=== PATIENT | female | born 1995 | race Two or more races ===

== ENCOUNTER → 2017-02-26 | Outpatient (CLI) | payer MEDICAID | LOC: FIMAGING 12:24 | DX: M25.551 Pain in right hip (principal); M25.561 Pain in right knee; R93.8 Abnormal findings on diagnostic imaging of other specified body structures ==

== ENCOUNTER 2017-03-27 06:40 | Emergency (ER) | payer MEDICAID ==
[2017-03-27 06:45] VITALS: BP 124/75; PULSE 78; TEMP 97.9; O2SAT 97
[2017-03-27] MEDS ORDERED: IBUPROFEN 600 MG TAB PO ONE (07:02)
--- NOTE | 2017-03-27 07:18 | EDPHY ---
H & P Time Seen by Provider: 03/27/17 07:07 HPI/ROS: CHIEF COMPLAINT: Right thumb pain HISTORY OF PRESENT ILLNESS: Patient is a 22-year-old [employer] who presents emergency department with right thumb pain. Her pain started last week at some point. 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 She describes fairly diffuse pain at the base of her thumb. Pain is moderate. Worse with movement. No numbness or tingling. REVIEW OF SYSTEMS: Negative Past Medical/Surgical History: Noncontributory Smoking Status: Former smoker Physical Exam: General Appearance: Alert and no distress. Head: Pupils equal. Normal. Respiratory: No respiratory distress. Cardiac: regular rate and rhythm. Extremities: patient's right hand and thumb appear normal. There is no swelling or discoloration. She has mild tenderness to palpation at the base of her right thumb. No crepitus or palpable deformity. Skin: No rashes or lesions. Neuro: Alert. Normal mood and affect. Constitutional: Initial Vital Signs Temperature (C) 36.6 C 03/27/17 06:41 Heart Rate 78 03/27/17 06:41 Respiratory Rate 18 03/27/17 06:41 Blood Pressure 124/75 H 03/27/17 06:41 O2 Sat (%) 97 03/27/17 06:41 O2 Delivery Mode Room Air Allergies/Adverse Reactions: No Known Allergies Allergy (Verified 05/07/16 04:34) Home Medications: Medication Instructions Recorded Albuterol Inhaler Hfa 12/16/13 Medical Decision Making ED Course/Re-evaluation: In the emergency department I discussed possible etiologies with the patient. I answered all her questions. X-ray of her right thumb was ordered. Right thumb x-ray: Please refer the dictated report. No acute disease noted. I discussed the results with the patient and answered all her questions. The patient was placed in a Velcro thumb spica splint. Post splint placement she was neurovascular intact distally. She will follow up with Orthopedics. She is given warnings prior to leaving. Differential Diagnosis: My differential includes but is not limited to fracture, dislocation, sprain, strain - Data Points Medications Given: Discontinued Medications Ibuprofen (Motrin) 600 mg PO EDNOW ONE Stop: 03/27/17 07:03 Last Admin: 03/27/17 07:10 Dose: 600 mg Departure - Departure Disposition: Home, Routine, Self-Care Clinical Impression: Sprain of thumb Qualifiers: Encounter type: initial encounter Sprain of finger site: unspecified site Laterality: right Qualified Code(s): S63.601A - Unspecified sprain of right thumb, initial encounter Condition: Good Instructions: Finger Sprain (ED) Additional Instructions: Your x-ray was negative. Wear your splint for comfort. Return with worsening symptoms. Referrals: Komal Munguia MD [Medical Doctor] - 5-7 days, call for appt.
[2017-03-27 08:34] VITALS: RESP 16
== END 2017-03-27 08:33 | disposition home or self-care (01) ==
DX: S63.601A Unspecified sprain of right thumb, initial encounter (principal); Z87.891 Personal history of nicotine dependence; X58.XXXA Exposure to other specified factors, initial encounter
CPT/HCPCS: L3807

== ENCOUNTER 2018-06-05 18:36 | Emergency (ER) | payer MEDICAID ==
--- NOTE | 2018-06-05 18:55 | EDPHY ---
H & P Stated Complaint: N/V/D ABD CRAMPS Time Seen by Provider: 06/05/18 18:55 - Personal History LMP (Females 10-55): 1-7 Days Ago Current Tetanus Diphtheria and Acellular Pertussis (TDAP): Yes - Medical/Surgical History Hx Asthma: Yes Hx Chronic Respiratory Disease: No Hx Diabetes: No Hx Cardiac Disease: No Hx Renal Disease: No Hx Cirrhosis: No Hx Alcoholism: No Hx HIV/AIDS: No Hx Splenectomy or Spleen Trauma: No Other PMH: PMH:MIGRAINES,asthma, ibs. PSH: TONSILLECTOMY - Social History Smoking Status: Former smoker Constitutional: Initial Vital Signs Temperature (C) 36.9 C 06/05/18 18:39 Heart Rate 103 H 06/05/18 18:39 Respiratory Rate 18 06/05/18 18:39 Blood Pressure 119/75 06/05/18 18:39 O2 Sat (%) 96 06/05/18 18:39 O2 Delivery Mode Room Air Allergies/Adverse Reactions: No Known Allergies Allergy (Verified 06/05/18 18:39) Home Medications: Medication Instructions Recorded Albuterol Inhaler Hfa 12/16/13 Nexplanon 06/05/18 Ondansetron Odt [Zofran Odt 4 mg 4 mg PO Q4 PRN #10 tab 06/05/18 (RX)] Medical Decision Making ED Course/Re-evaluation: CHIEF COMPLAINT: N/V/D, abdominal cramping. HISTORY OF PRESENT ILLNESS: The patient is a 23 y/o female with a history of IBS who complains of persistent nausea, vomiting, diarrhea, and abdominal cramping today. She started to feel off last night and this morning around 04:00 , 15 hours ago, she woke up with a headache, nausea, and dizziness. Symptoms progressed to vomiting, diarrhea, and abdominal cramping through the day. She has tried drinking different fluids, but is unable to keep anything down. Her last episode of diarrhea was 3 hours ago around 16:00. 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 REVIEW OF SYSTEMS: A comprehensive 10 system review of systems is otherwise negative aside from elements mentioned in the history of present illness and medical decision making. PHYSICAL EXAM: HR, BP, O2 Sat, RR. Temp noted General Appearance: Alert, well hydrated, appropriate, and non-toxic appearing. Head: Atraumatic without scalp tenderness or obvious injury Eyes: Pupils equal, round, reactive to light and accommodation, EOMI, no trauma , no injection. Nose: Atraumatic, no rhinorrhea, clear. Throat: There is no erythema or exudates, no lesions, normal tonsils, mucus membranes moist. Neck: Supple, nontender, no lymphadenopathy. Respiratory: No retractions, no distress, no wheezes, and no accessory muscle use. Lungs are clear to auscultation bilaterally. Cardiovascular: Regular rate and rhythm, no murmurs, rubs, or gallops. Good capillary refill all extremities. Gastrointestinal: Abdomen is obese, soft, no tenderness, non-distended, no masses, no rebound, no guarding, no peritoneal signs. Musculoskeletal: Normal active ROM of all extremities, atraumatic. Neurological: Alert, appropriate, and interactive. Nonfocal. Skin: No rashes, good turgor, no nodules on palpation. Past medical history: Asthma, IBS, migraines Past surgical history: Tonsillectomy Family history: Noncontributory Social history: Employed at healthcare facility. Lives in [place]. DIFFERENTIAL DIAGNOSIS: The differential diagnosis for the patient's nausea and vomiting included but was not limited to gastroenteritis, gastritis, appendicitis, and medication side effect. MEDICAL DECISION MAKING: This is a 23 y/o female who presents with nausea, vomiting, diarrhea, and abdominal cramping onset today. Her exam is unremarkable. Suspect infectious cause like Norovirus due to current prevalence in community. Plan for IV, labs, symptomatic management. 2L IV NS, 30mg IV Toradol, 4mg IV Zofran, 1mg IV Dilaudid ordered. Patient is tolerating PO fluids without issue. She feels ready to go home. Zofran prepacks provided. Return precautions discussed. She is comfortable with this plan. - Data Points Laboratory Results: 06/05/18 19:29 POC Hgb 14.6 gm/dL gm/dL (12.6-16.3) POC Hct 43 % % (38-47) POC Sodium 143 mEq/L mEq/L (135-145) POC Potassium 4.0 mEq/L mEq/L (3.3-5.0) POC Chloride 109 mEq/L mEq/L (97-110) POC BUN 11 mg/dL mg/dL (7-23) POC Creatinine 0.5 mg/dL L mg/dL (0.6-1.0) POC Glucose 109 mg/dL H mg/dL (70-100) Medications Given: Discontinued Medications Hydromorphone HCl (Dilaudid) 1 mg IVP EDNOW ONE Stop: 06/05/18 19:09 Last Admin: 06/05/18 19:23 Dose: 1 mg Sodium Chloride (Ns) 1,000 mls @ 0 mls/hr IV EDNOW ONE; Wide Open PRN Reason: Protocol Stop: 06/05/18 19:09 Last Admin: 06/05/18 19:23 Dose: 1,000 mls Sodium Chloride (Ns) 1,000 mls @ 0 mls/hr IV EDNOW ONE; Wide Open PRN Reason: Protocol Stop: 06/05/18 19:09 Last Admin: 06/05/18 19:23 Dose: 1,000 mls Ketorolac Tromethamine (Toradol) 30 mg IVP EDNOW ONE Stop: 06/05/18 19:09 Last Admin: 06/05/18 19:22 Dose: 30 mg Ondansetron HCl (Zofran) 4 mg IVP EDNOW ONE Stop: 06/05/18 19:09 Last Admin: 06/05/18 19:23 Dose: 4 mg Point of Care Test Results: Chemistry 06/05/18 19:29 POC Sodium 143 mEq/L mEq/L (135-145) POC Potassium 4.0 mEq/L mEq/L (3.3-5.0) POC Chloride 109 mEq/L mEq/L (97-110) POC BUN 11 mg/dL mg/dL (7-23) POC Creatinine 0.5 mg/dL L mg/dL (0.6-1.0) POC Glucose 109 mg/dL H mg/dL (70-100) ISTAT H&H 06/05/18 19:29 POC Hgb 14.6 gm/dL gm/dL (12.6-16.3) POC Hct 43 % % (38-47) Departure - Departure Disposition: Home, Routine, Self-Care Clinical Impression: Nausea vomiting and diarrhea Condition: Good Instructions: Ondansetron (By mouth), Acute Nausea and Vomiting (ED), Acute Diarrhea (ED) Additional Instructions: 1. Increase fluid intake as tolerated. Recommend clear liquid diet for first 24 hours. 2. Follow up with primary care provider as needed for unimproved symptoms over the next few days. 3. Wash hands frequently to prevent spread of illness to others. 4. Return for worsening of condition. Referrals: Philomena Irvin DO [Primary Care Provider] - As per Instructions Prescriptions: Ondansetron Odt [Zofran Odt 4 mg (RX)] 4 mg PO Q4 PRN #10 tab PRN Reason: Nausea/Vomiting, Use 1st Report Scribed for: Nikunj Sidhu Report Scribed by: Marlyn Guerra Date of Report: 06/05/18 Time of Report: 20:17
[2018-06-05] MEDS ORDERED: HYDROmorphONE/DILAUDID 2 MG/ML INJ IVP ONE (19:08)
[2018-06-05] MEDS ORDERED: ONDANSETRON 4 MG/2 ML VIAL IVP ONE (19:08)
[2018-06-05] MEDS ORDERED: NS 1,000 ML IV ONE ×2 (19:08)
[2018-06-05] MEDS ORDERED: KETOROLAC 30 MG/1 ML SDV IVP ONE (19:08)
[2018-06-05] MEDS ORDERED: ONDANSETRON 4MG PREPACK#2 BTL TAKEHOME ONE (20:45)
[2018-06-05] MEDS ORDERED: HYDROCOD/APAP 5/325 PREPACK#6 BTL TAKEHOME ONE (20:45)
[2018-06-05 21:46] VITALS: BP 102/65
== END 2018-06-05 21:59 | disposition home or self-care (01) ==
DX: R11.2 Nausea with vomiting, unspecified (principal); R19.7 Diarrhea, unspecified; E86.9 Volume depletion, unspecified; K58.9 Irritable bowel syndrome, unspecified; J45.909 Unspecified asthma, uncomplicated; G43.909 Migraine, unspecified, not intractable, without status migrainosus
CPT/HCPCS: 82435-PO; 82565-PO; 82947-PO; 84132-PO; 84295-PO; 84520-PO; 85014-ER; 96374; J1170; J1885; J2405